=== PATIENT | male | born 1970 | race Caucasian/White ===

== ENCOUNTER → 2017-03-06 | Outpatient (CLI) | payer MEDICARE | END | disposition home or self-care (01) | LOC: CFH 15:20 | PROVIDERS: ATTEND Family Medicine | DX: G31.9 Degenerative disease of nervous system, unspecified (principal); R47.89 Other speech disturbances; I73.9 Peripheral vascular disease, unspecified | CPT/HCPCS: 70551 ==

== ENCOUNTER → 2017-03-25 | Outpatient (CLI) | payer MEDICARE | END | disposition home or self-care (01) | LOC: RAD 08:33 | PROVIDERS: ATTEND Family Medicine | DX: R16.0 Hepatomegaly, not elsewhere classified (principal); E11.21 Type 2 diabetes mellitus with diabetic nephropathy; E78.1 Pure hyperglyceridemia; I10 Essential (primary) hypertension | CPT/HCPCS: 76700; 93975 ==

== ENCOUNTER 2017-05-05 11:32 | Emergency (ER) | payer MEDICARE ==
[~2017-05-05] VITALS: Ht 185.4 cm; Wt 120.6 kg
[2017-05-05 11:34] VITALS: BP 180/92
[2017-05-05] MEDS ORDERED: HYDROcodone/APAP 5/325 TABLET PO ONE (12:00)
[2017-05-05] MEDS ORDERED: LISI-170 PO (12:18)
[2017-05-05] MEDS ORDERED: AMLO5TAB2 PO (12:18)
[2017-05-05] MEDS ORDERED: METF500T4 PO (12:18)
[2017-05-05] MEDS ORDERED: ATEN100T PO (12:18)
[2017-05-05] MEDS ORDERED: HYDROcodone/APAP 5/325 TABLET ONE (12:35)
== END 2017-05-05 12:51 | disposition home or self-care (01) ==
LOC: ED 12:30
DX: S29.012A Strain of muscle and tendon of back wall of thorax, initial encounter (principal); I10 Essential (primary) hypertension; E11.9 Type 2 diabetes mellitus without complications; F17.210 Nicotine dependence, cigarettes, uncomplicated; V43.52XA Car driver injured in collision with other type car in traffic accident, initial encounter; Y93.89 Activity, other specified; Y92.89 Other specified places as the place of occurrence of the external cause; Y99.9 Unspecified external cause status
CPT/HCPCS: 71020; 72072; 99284

== ENCOUNTER 2020-03-10 19:46 | Emergency (ER) | payer MEDICARE ==
[~2020-03-10] VITALS: Ht 188 cm; Wt 110.3 kg
[~2020-03-10 19:46] MED LIST: AMLO-150 PO; ATEN100T PO; LISI-170 PO; METF500T17 PO
[2020-03-10 19:50] VITALS: BP 177/104
--- NOTE | 2020-03-10 21:30 | NUR ---
at bedside for assessment.
[2020-03-10 22:13] LABS: BASOPHILS # (AUTO) 0.03 x10^3/uL (0-0.1); BASOPHILS % (AUTO) 0 % (0-1); EOSINOPHILS # (AUTO) 0.13 x10^3/uL (0-0.4); EOSINOPHILS % (AUTO) 1 % (1-7); LYMPHOCYTES # (AUTO) 3.51 x10^3/uL (1-3.4); LYMPHOCYTES % (AUTO) 38 % (22-44); MD NO; MEAN CORPUSCULAR HEMOGLOBIN 30.2 pg (27.5-34.5); MEAN CORPUSCULAR HGB CONC 33.6 g/dL (33.2-36.2); MEAN PLATELET VOLUME 6.9 fL (7.4-10.4); MONOCYTES # (AUTO) 1.24 x10^3/uL (0.2-0.8); MONOCYTES % (AUTO) 13 % (2-9); NEUTROPHILS # (AUTO) 4.46 x10^3/uL (1.8-6.8); NEUTROPHILS % (AUTO) 48 % (42-75); PLATELET COUNT 338 x10^3/uL (130-400); RED BLOOD COUNT 5.26 x10^6/uL (4.38-5.82); RED CELL DISTRIBUTION WIDTH 13.9 % (9.4-14.8)
[2020-03-10 22:24] LABS: ALANINE AMINOTRANSFERASE 48 U/L (12-78); ALBUMIN 4.2 g/dL (3.4-5.0); ANION GAP 5 mmol/L (5-15); CALCIUM 9.1 mg/dL (8.5-10.1); CHLORIDE 106 mmol/L (98-107); CREATININE 0.87 mg/dL (0.7-1.3)
[2020-03-10 22:26] LABS: ALKALINE PHOSPHATASE 65 U/L (45-117); BILIRUBIN,TOTAL 0.4 mg/dL (0.2-1.0); CREATINE KINASE, TOTAL 363 U/L (39-308); TOTAL PROTEIN 7.9 g/dL (6.4-8.2)
== END 2020-03-11 00:36 | disposition home or self-care (01) ==
LOC: ED 20:16
DX: M79.661 Pain in right lower leg (principal); M79.651 Pain in right thigh; I10 Essential (primary) hypertension; E11.9 Type 2 diabetes mellitus without complications; E78.5 Hyperlipidemia, unspecified; F17.210 Nicotine dependence, cigarettes, uncomplicated
CPT/HCPCS: 36415; 80053; 82550; 85025; 99284; 99406